=== PATIENT | female | born 1955 | race Caucasian/White ===

== ENCOUNTER 2019-01-04 08:06 | Outpatient (CLI) | payer BC ==
--- NOTE | 2019-01-13 10:22 | MMO ---
Bilateral MAMMO Bilat Screen [facility]. CLINICAL HISTORY: Patient is 63 years old and is seen for screening. The patient has no family history of breast cancer. The patient has no personal history of cancer. The patient has a history of right Lumpectomy in 1989 - benign. VIEWS: The views performed were: bilateral craniocaudal and bilateral mediolateral oblique. FILMS COMPARED: The present examination has been compared to prior imaging studies performed at [facility] on 07/06/2014, 06/13/2015, 06/19/2016 and 12/29/2017. This study has been interpreted with the assistance of computer-aided detection. MAMMOGRAM FINDINGS: The breasts are almost entirely fat. There are no suspicious masses, suspicious calcifications, or new areas of architectural distortion. IMPRESSION: THERE IS NO MAMMOGRAPHIC EVIDENCE OF MALIGNANCY. A ROUTINE FOLLOW-UP MAMMOGRAM IN 1 YEAR IS RECOMMENDED. ACR BI-RADS Category 1 - Negative MAMMOGRAPHY NOTE: 1. A negative mammogram report should not delay a biopsy if a dominant of clinically suspicious mass is present. 2. Approximately 10% to 15% of breast cancers are not detected by mammography. 3. Adenosis and dense breasts may obscure an underlying neoplasm.
== END 2019-01-04 08:07 | disposition home or self-care (01) ==
LOC: SCSMAMMO 08:06
PROVIDERS: ATTEND Family Medicine
DX: Z12.31 Encounter for screening mammogram for malignant neoplasm of breast (principal); Z91.89 Other specified personal risk factors, not elsewhere classified
CPT/HCPCS: 77067

== ENCOUNTER 2020-01-30 07:20 | Outpatient (CLI) | payer MEDICARE ==
--- NOTE | 2020-01-30 08:51 | CT ---
CT Abdomen Pelvis W WO con: 01/30/2020 12:00 AM CLINICAL HISTORY: Microhematuria. TECHNIQUE: Multiple contiguous axial images were obtained and a CT of the abdomen and pelvis without and with IV contrast. Postcontrast images were obtained in the nephrographic and excretory phases. Sagittal and coronal reformats were performed. COMPARISON: None. FINDINGS: Kidneys and Urinary Tract: Right kidney and ureter: No calculi. No hydronephrosis or hydroureter. No renal mass or other lesions . No urothelial lesions: no filling defect, dilation, stricture or wall thickening. Left kidney and ureter: No calculi. No hydronephrosis or hydroureter. No renal mass or other lesions. No urothelial lesions: no filling defect, dilation, stricture or wall thickening. Urinary bladder: Contains air which may be from recent instrumentation. Normal, no calculi, mass or o ther lesions. Remainder of Abdomen and Pelvis: Liver: 6.4 cm cyst near the dome Gallbladder and biliary system: Normal. No CT evident gallstones. No biliary ductal dilatation. Spleen: Normal. Pancreas: Normal. Adrenal glands: There is hyperplasia of both adrenal glands, left greater than right. GI tract: Scattered diverticula in the colon. Abdominal aorta and its major branches: Normal. No aneurysm. Peritoneum/retroperitoneum: Normal. No ascites. No adenopathy. Pelvic structures: Normal. No pelvic lymphadenopathy. Body wall and musculoskeletal: There is a healed right inferior pubic ramus fracture. Degenerative ch anges are seen in the spine. Visualized lower thorax: Normal. No pulmonary parenchymal mass or pleural effusion. IMPRESSION: 1. Air seen in the urinary bladder may be from recent instrumentation. 2. Diverticulosis 3. Hepatic cyst 4. Adrenal hyperplasia
[2020-01-30] MEDS ORDERED: Iopamidol 370 76% 100 ML VIAL ONE (09:36)
== END 2020-01-30 07:21 | disposition home or self-care (01) ==
LOC: BICCT 07:20
PROVIDERS: ATTEND Urology
DX: R31.29 Other microscopic hematuria (principal); N28.1 Cyst of kidney, acquired; E27.8 Other specified disorders of adrenal gland; N32.89 Other specified disorders of bladder; K57.30 Diverticulosis of large intestine without perforation or abscess without bleeding; Z77.021 Contact with and (suspected) exposure to benzene; Z87.448 Personal history of other diseases of urinary system
CPT/HCPCS: 74178; 82565; Q9967

== ENCOUNTER 2020-03-26 09:02 | Outpatient (CLI) | payer MEDICARE ==
--- NOTE | 2020-03-26 09:43 | MMO ---
Bilateral MAMMO Bilat Screen [facility]. CLINICAL HISTORY: Patient is 64 years old and is seen for screening. The patient has no family history of breast cancer. The patient has no personal history of cancer. The patient has a history of right Lumpectomy in 1989 - benign. VIEWS: The views performed were: bilateral craniocaudal with tomosynthesis and bilateral mediolateral oblique with tomosynthesis. FILMS COMPARED: The present examination has been compared to prior imaging studies performed at [facility] on 01/04/2019, and at [facility] on 06/13/2015, 06/19/2016 and 12/29/2017. This study has been interpreted with the assistance of computer-aided detection. MAMMOGRAM FINDINGS: There are scattered fibroglandular densities. There are no suspicious masses, suspicious calcifications, or new areas of architectural distortion. IMPRESSION: THERE IS NO MAMMOGRAPHIC EVIDENCE OF MALIGNANCY. A ROUTINE FOLLOW-UP MAMMOGRAM IN 1 YEAR IS RECOMMENDED. THE RESULTS OF THIS EXAM WERE SENT TO THE PATIENT. ACR BI-RADS Category 1 - Negative MAMMOGRAPHY NOTE: 1. A negative mammogram report should not delay a biopsy if a dominant of clinically suspicious mass is present. 2. Approximately 10% to 15% of breast cancers are not detected by mammography. 3. Adenosis and dense breasts may obscure an underlying neoplasm. Reported by: WILVER VIVAS MD Electonically Signed: [id number]
== END 2020-03-26 09:03 | disposition home or self-care (01) ==
LOC: BICMAMMO 09:02
PROVIDERS: ATTEND Family Medicine
DX: Z12.31 Encounter for screening mammogram for malignant neoplasm of breast (principal); Z91.89 Other specified personal risk factors, not elsewhere classified
CPT/HCPCS: 77063; 77067

== ENCOUNTER 2020-08-08 09:52 | Outpatient (CLI) | payer MEDICARE ==
--- NOTE | 2020-08-08 10:43 | ULT ---
EXAM: US Hepatic Doppler PROVIDED CLINICAL HISTORY: Abnormal LFTs COMPARISON: CT 01/30/2020 FINDINGS: The visualized abdominal aorta, IVC and pancreas appear normal. The liver demonstrates an echogenic appearance compatible with fatty infiltration. There is no eviden ce for solid mass or intrahepatic biliary ductal dilatation. There is a simple appearing cyst within the right hepatic lobe again demonstrated, measuring approximately 7.1 cm maximally. A gallstone is demonstrated without evidence for wall thickening or pericholecystic fluid. The common duct is nondilated. The spleen is upper limits normal in size without focal abnormality. The right kidney demonstrates no hydronephrosis or mass. Color Doppler and spectral analysis of the hepatic arterial, hepatic portal, hepatic venous, splenic arterial and splenic venous waveforms demonstrates normal direction of flow. IMPRESSION: 1. Fatty infiltration of the liver. 2. Cholelithiasis. 3. Normal hepatic Doppler.
== END 2020-08-08 09:53 | disposition home or self-care (01) ==
LOC: BICULT 09:52
PROVIDERS: ATTEND Internal Medicine Gastroenterology
DX: R94.5 Abnormal results of liver function studies (principal); Z86.010 Personal history of colon polyps; K76.0 Fatty (change of) liver, not elsewhere classified; K80.20 Calculus of gallbladder without cholecystitis without obstruction
CPT/HCPCS: 76705

== ENCOUNTER 2021-07-12 12:50 | Outpatient (CLI) | payer MEDICARE | END 2021-07-12 12:51 | disposition home or self-care (01) | LOC: BICMAMMO 12:50 | PROVIDERS: ATTEND Family Medicine | DX: Z12.31 Encounter for screening mammogram for malignant neoplasm of breast (principal); Z91.89 Other specified personal risk factors, not elsewhere classified | CPT/HCPCS: 77063; 77067 ==

== ENCOUNTER 2022-04-14 07:47 | Outpatient (CLI) | payer MEDICARE, OTHER | END 2022-04-14 07:48 | disposition home or self-care (01) | LOC: BICMAMMO 07:47 | PROVIDERS: ATTEND Family Medicine | DX: Z13.820 Encounter for screening for osteoporosis (principal); Z78.0 Asymptomatic menopausal state; M81.0 Age-related osteoporosis without current pathological fracture; M85.88 Other specified disorders of bone density and structure, other site | CPT/HCPCS: 77080 ==

== ENCOUNTER 2022-08-11 07:55 | Outpatient (CLI) | payer OTHER | END 2022-08-11 07:56 | disposition home or self-care (01) | LOC: BICMAMMO 07:55 | PROVIDERS: ATTEND Family Medicine | DX: Z12.31 Encounter for screening mammogram for malignant neoplasm of breast (principal); Z98.890 Other specified postprocedural states; Z91.89 Other specified personal risk factors, not elsewhere classified | CPT/HCPCS: 77063; 77067 ==

== ENCOUNTER 2022-10-03 08:35 | Outpatient (CLI) | payer OTHER | END 2022-10-03 08:36 | disposition home or self-care (01) | LOC: NM 08:35 | PROVIDERS: ATTEND Psychiatry & Neurology Neurology | DX: R26.9 Unspecified abnormalities of gait and mobility (principal) | CPT/HCPCS: 78803; A9584 ×2 ==

== ENCOUNTER 2023-06-02 08:30 | Outpatient (CLI) | payer OTHER | END 2023-06-02 08:31 | disposition home or self-care (01) | LOC: SCSMRI 08:30 | PROVIDERS: ATTEND Family Medicine | DX: M47.26 Other spondylosis with radiculopathy, lumbar region (principal); R26.9 Unspecified abnormalities of gait and mobility; G62.9 Polyneuropathy, unspecified; M51.16 Intervertebral disc disorders with radiculopathy, lumbar region; M51.24 Other intervertebral disc displacement, thoracic region; M47.814 Spondylosis without myelopathy or radiculopathy, thoracic region; M51.34 Other intervertebral disc degeneration, thoracic region | CPT/HCPCS: 72146; 72148 ==

== ENCOUNTER 2024-05-05 08:04 | Day surgery (SDC) | payer OTHER ==
[2024-05-04 13:34] VITALS: BMI 36.2
[~2024-05-05 08:04] MED LIST: EPINEPHrine 0.3 MG in Ophthalmic Irrigation Solution 500 ML IRR SCH
[2024-05-05] MEDS ORDERED: Cyclopentolate 1% Opth Drop 2 ML BOT ONE (09:34)
[2024-05-05] MEDS ORDERED: PHENYLephrine 2.5% Ophth Soln 15 ml Bottle ONE (09:34)
[2024-05-05] MEDS ORDERED: Midazolam HCl 2 mg/2 ml Vial ONE (10:24)
[2024-05-05] MEDS ORDERED: fentaNYL 50 mcg/mL 1 mL Vial ONE (10:24)
[2024-05-05] MEDS ORDERED: Triamcinolone 40 MG/ML VIAL ONE (10:36)
[2024-05-05] MEDS ORDERED: Bupivacaine 0.75% 10 ML VIAL ONE (10:36)
[2024-05-05] MEDS ORDERED: Maxitrol 0.1% Opth Oint 3.5 GM TUBE ONE (10:36)
[2024-05-05] MEDS ORDERED: CEFAZOLIN 1 GM VIAL ONE (10:36)
[2024-05-05] MEDS ORDERED: PROPOFOL 200 MG/20 ML VIAL ONE (10:36)
[2024-05-05] MEDS ORDERED: Lidocaine 1% PF 5 ML VIAL ONE (10:36)
[2024-05-05] MEDS ORDERED: Lidocaine 4% PF 5 ML AMP ONE (10:36)
[2024-05-05] MEDS ORDERED: Indocyanine Green 25 MG/10 ML VIAL ONE (10:36)
== END 2024-05-05 11:55 | disposition home or self-care (01) ==
LOC: SDC 08:04
PROVIDERS: ATTEND Ophthalmology Retina Specialist
PROC: 08T53ZZ Resection of Left Vitreous, Percutaneous Approach (ICD-10-PCS; principal; 2024-05-05)
DX: H35.342 Macular cyst, hole, or pseudohole, left eye (principal)
CPT/HCPCS: 67025; 67042; J0171; J0690; J2250; J2704; J3010; J3301; J3490